=== PATIENT | female | born 1990 ===

== ENCOUNTER → 2019-08-19 | Day surgery (SDC) | payer OTHER ==
--- NOTE | 2019-08-19 10:48 | RADIOLOGY REPORT (SQ) ---
EXAM DESCRIPTION: MRI RT LOWER JOINT WITH COMPLETED DATE/TIME: 08/19/2019 10:12 am REASON FOR STUDY: RIGHT HIP PAIN (M25.551) M25.551 PAIN IN RIGHT HIP COMPARISON: None. TECHNIQUE: Post arthrogram imaging is performed using T1 and T1 and T2 fat saturated sequences of th e pelvis and specific hip of interest. LIMITATIONS: None. FINDINGS: JOINT DISTENSION: Adequate. BONE MARROW: Generally normal. Small blooming artifacts along the right iliac wing, minimal metal fr agments related to previous surgery. FEMORAL HEAD, NECK, AND ACETABULUM: Relatively normal morphology. No AVN or fracture. Appropriate a cetabular coverage. LABRUM AND CARTILAGE: No focal chondral lesions are detected. No reactive bone cysts or erosions on either side of the joint. Signal in the anterior superior labrum suggestive of tear with mild frayin g but no displacement or paralabral cyst. Best demonstrated on series 9 image 15 in adjacent slices as well as series 8 image 9 and adjacent slices. MUSCLES AND SOFT TISSUES: Intact without evidence of tear or bursitis. PELVIC SOFT TISSUES: No significant finding. SCIATIC NERVE: No regional edema or mass suggested. OTHER: No left hip effusion or bursitis or AVN or fracture detected. IMPRESSION: 1. Postoperative changes, reported prior treatment for hip dysplasia. On today's study, suspect mild labral fraying and tear anterosuperiorly. Articular surface cartilage looks relatively maintained. TECHNICAL DOCUMENTATION: JOB ID: [id number] [employer] [employer]- All Rights Reserved Reading location - IP/workstation name: [email or web address]
--- NOTE | 2019-08-19 11:11 | RADIOLOGY REPORT (SQ) ---
EXAM DESCRIPTION: ARTHRO HIP INJ W/ANESTHESIA; FLUORO/NEEDLE PLACEMENT COMPLETED DATE/TIME: 08/19/2019 9:36 am REASON FOR STUDY: RIGHT HIP PAIN (M25.551) M25.551 PAIN IN RIGHT HIP COMPARISON: None. FLUOROSCOPY TIME: 6 seconds AP fluoroscopic right hip image saved to PACS. LIMITATIONS: None. PROCEDURE: Procedure, risks, benefits and alternatives explained to patient who then gave written c onsent. The right hip was marked and a time-out was called for correct marking verification. Entry site marked using fluoroscopic guidance. Hip prepped and draped using sterile technique. Local ane sthesia achieved using 4 mL of 1% lidocaine injection. 20 gauge spinal needle introduced into the steve int space under direct fluoroscopic visualization. Non-ionic contrast instilled to confirm intra-art icular position. Dilute gadolinium solution then injected. Needle removed and entry site covered w ith sterile bandage. No immediate complications noted. TECHNIQUE: Digital images acquired during fluoroscopy and stored on PACS. Patient immediately take n to the MR suite for additional imaging. INJECTION LOCATION: Right hip CONTRAST TYPE AND AMOUNT: 1 mL of Omnipaque 300 was injected to confirm intra-articular needle placem ent followed by 9 mL of dilute Dotarem/Saline mixture. IMPRESSION: SUCCESSFUL NEEDLE PLACEMENT AND INJECTION FOR RIGHT HIP MR ARTHROGRAM. COMMENT: Quality ID [id number]: Final reports for procedures using fluoroscopy that document radiation exp osure indices, or exposure time and number of fluorographic images (if radiation exposure indices are not available) TECHNICAL DOCUMENTATION: JOB ID: [id number] [employer]- All Rights Reserved Reading location - IP/workstation name: [email or web address]
== END ==
LOC: RAD 08:25
PROVIDERS: ATTEND Physician Assistant
DX: M25.551 Pain in right hip (principal); Z01.89 Encounter for other specified special examinations
CPT/HCPCS: 73722; 77002; 27095; A9576